=== PATIENT | female | born 1950 | race Caucasian/White ===

== ENCOUNTER 2022-02-17 10:12 | Emergency (ER) | payer MEDICARE ==
[2022-02-17] MEDS ORDERED: Epinephrine Preservative Free 1 MG/ML ONE (10:45)
[2022-02-17] MEDS ORDERED: solu-MEDROL 125 MG, Sterile H2O 10 ml 2 ML IV ONE ×4 (10:48→16:37)
[2022-02-17] MEDS ORDERED: Sterile H2O 10 ml IJ ONE ×2 (10:48→16:45)
[2022-02-17] MEDS ORDERED: solu-MEDROL ONE ×2 (10:48→16:45)
[2022-02-17] MEDS ORDERED: Epinephrine Preservative Free 1 MG/ML SQ ONE ×2 (10:49→10:57)
[2022-02-17] MEDS ORDERED: Pepcid 20 MG VIAL IV ONE ×3 (10:50→11:36)
[2022-02-17] MEDS ORDERED: ROCEPHIN 2 Gm-D5w 50ML BAG** 2 G/50 ML IVPB IV STA (11:05)
[2022-02-17] MEDS ORDERED: ROCEPHIN 2 Gm-D5w 50ML BAG** 2 G/50 ML IVPB IV ONE (11:05)
[2022-02-17] MEDS ORDERED: DECADRON 10MG INJ. IV ONE (11:06)
[2022-02-17] MEDS ORDERED: DECADRON 10MG INJ. ONE (11:08)
--- NOTE | 2022-02-17 11:19 | XRAY ---
Indication: Swelling. Contiguous axial images obtained through the neck without contrast. Comparison: None Parotid and submandibular glands are bilaterally symmetric. No pathologic cervical or supraclavicular lymphadenopathy. Mild scattered carotid calcifications, left greater than right. Thyroid gland appears homogeneous. Supra and infraglottic airway widely patent. Normal epiglottis. Osseous structures intact. No suspicious bony lesions. Patient is edentulous. TMJ bilaterally symmetric. Base of brain and lung apices are unremarkable. Impression: Mild arteriosclerotic disease. Remaining CT neck without contrast exam is negative.
[2022-02-17 11:34] LABS: Absolute Neutrophil Ct (ANC) 14.34 x10^3/uL (1.4-6.9); Basophil (Absolute #) 0.03 x10^3/uL (0-0.4); Eosinophil (Absolute #) 0 x10^3/uL (0-0.5); Hematocrit 36.7 % (35-47); Hemoglobin 12.3 g/dL (12.0-16.0); Lymphocyte (Absolute #) 0.69 x10^3/uL (1.0-4.6); Lymphocytes % 4.4 % (24.0-44.0); Mean Cell Volume 96.6 fL (78-100); Mean Corpuscular Hemoglobin 32.4 pg (26-32); Mean Corpuscular Hgb Concent. 33.5 g/dL (32-36); Mean Platelet Volume 10.7 fL (7.5-11.0); Monocyte (Absolute #) 0.42 x10^3/uL (0.0-1.3); Monocytes % 2.7 % (0.0-12.0); Neutrophil % 92.2 % (36.0-66.0); Platelet Count 140 x10^3/uL (150-450); Red Cell Distribution Width 12.2 % (11.5-14.0); White Blood Count 15.6 x10^3/uL (4.0-10.5)
[2022-02-17 11:46] LABS: ALBUMIN 3.4 g/dL (3.5-5.0); ANION GAP 10.7 MEQ/L (5-15); BILIRUBIN,TOTAL 1.1 mg/dL (0.2-1.3); Calcium 8.3 mg/dL (8.4-10.2); Creatinine 1 1.35 mg/dL (0.52-1.04); EST GLOMERULAR FILTRATION RATE 41.1 ML/MIN; Potassium 3.3 mmol/L (3.5-5.1); Total Protein 6.5 g/dL (6.3-8.2)
--- NOTE | 2022-02-17 12:19 | XRAY ---
Indication: Trouble swallowing. Targeted soft tissue ultrasound neck demonstrates 9 x 6 x 7 mm benign-appearing lymph node. No other solid/cystic mass or abnormal fluid collection.
--- NOTE | 2022-02-17 12:46 | XRAY ---
Indication: URI symptoms. Comparison: None Portable chest inflated and clear. Heart borderline enlarged. Bony thorax intact with mild osteopenia and degenerative changes.
--- NOTE | 2022-02-17 12:59 | ERPHSYRPT ---
- History of Present Illness Source: patient, other (Daughter) Patient Subjective Stated Complaint: pt with flu-like s/s for 2 weeks, saw her PCP 02/15/22, on that day she woke up with the worst sore throat ever, states at her appt the left side of her neck was swollen slightly and she was treated for a URI with IM steroids and abx. today she woke and her symptoms had worsened, pt was unable to swallow any secretions and had increased swelling to the neck as well as redness and pain, pt has also been vomiting. Triage Nursing Assessment: pt is aox3, pt appears in distress, gurgling sounds heard from upper airway, pt spitting out clear, copious secretions, pt pupils perrl, afebrile, radial pulses strong and equal, pt skin pale warm dry. swelling noted to the RLE with redness and warmth, skin is intact. pt with pressure dressing to the left forearm, pt with right mastectomy. Physician History: 72 yo wf w 2 day h/o anterior cervical edema. Pt has had URI symptoms x 2 wks and woke up 2 days ago w a severe ST. Pt was given IM antibiotics and IM Steroids per Hx. She has severe anterior cervical edema and trouble swallowing. Pt has to sit up to help w her secretions. Nursing called me into the room immediately to assess pt. IV access started immediately and 0.3 sq epi given x2, and pt was moved to room 2. Worried about airway due to severe edema so anesthes ia called due to possibility of airway compromise and difficult intubation. 125mg IV Solumedrol given/450mg IV Pepcid given. Pt sent to CT for soft tissue of neck which demonstrated a good airway and normal epiglottis. Oddly, edema not noted on CT. 10mg IV Decadron subsequently given. 2gm's IV Rocephin given. Edema mildly subsided w pt maintaining a good airway, so anesthesia went back to the OR. Timing/Duration: other (2 days) Severity: severe Modifying Factors: Improves With: nothing Associated Symptoms: shortness of breath, cough Allergies/Adverse Reactions: amlodipine Allergy (Verified 02/17/22 11:24) cisapride Allergy (Verified 02/17/22 11:24) doxycycline Allergy (Verified 02/17/22 11:24) enalapril Allergy (Verified 02/17/22 11:24) enalaprilat [From Vasotec] Allergy (Verified 02/17/22 11:24) fluoxetine Allergy (Verified 02/17/22 11:24) paroxetine Allergy (Verified 02/17/22 11:24) sertraline Allergy (Verified 02/17/22 11:24) sucralfate Allergy (Verified 02/17/22 11:24) Sulfa (Sulfonamide Antibiotics) Allergy (Verified 02/17/22 11:24) sulfadiazine Allergy (Verified 02/17/22 11:24) trazodone Allergy (Verified 02/17/22 11:24) Hx Tetanus, Diphtheria Vaccination/Date Given: Yes Hx Influenza Vaccination/Date Given: No Hx Pneumococcal Vaccination/Date Given: No Immunizations Up to Date: Yes Travel Risk - International Travel Have you traveled outside of the country in past 3 weeks: No - Coronavirus Screening Are you exhibiting any of the following symptoms?: No Close contact with a COVID-19 positive Pt in past 14-21 Days: No - Vaccine Status Have you recieved a Covid-19 vaccination: No - Review of Systems Constitutional: No Symptoms, Malaise Eyes: No Symptoms Ears, Nose, & Throat: No Symptoms, Throat Swelling Respiratory: No Symptoms, Cough Cardiac: No Symptoms Abdominal/Gastrointestinal: No Symptoms Genitourinary Symptoms: No Symptoms Musculoskeletal: No Symptoms Neurological: No Symptoms Psychological: No Symptoms Endocrine: No Symptoms Hematologic/Lymphatic: No Symptoms Immunological/Allergic: No Symptoms - Past Medical History Pertinent Past Medical History: Yes Cardiac History: Coronary Artery Disease, High Cholesterol, Hypertension History: Renal Disease - Past Surgical History Past Surgical History: Yes Cardiac: Cardiac Stent Female Surgical History: Mastectomy - Social History Smoking Status: Never smoker Drug Use: none Patient Lives Alone: No - Nursing Vital Signs Nursing Vital Signs: Initial Vital Signs Temperature 99.4 F 02/17/22 10:44 Pulse Rate 120 H 02/17/22 10:44 Respiratory Rate 12 02/17/22 10:44 Blood Pressure 128/74 02/17/22 10:44 O2 Sat by Pulse Oximetry 97 02/17/22 10:44 Pain Scale Pain Intensity 0 Tachy - Physical Exam General Appearance: moderate distress (Pt w possible early airway compromis) Eye Exam: PERRL/EOMI, eyes nml inspection Ears, Nose, Throat Exam: TMs normal, other (Tongue slightly enlarged but airway maintained), No pharyngeal erythema Neck Exam: other (Marked anterior cervical edema/erythema/TTP) Respiratory Exam: lungs clear, airway intact Cardiovascular Exam: tachycardia, No murmur Gastrointestinal/Abdomen Exam: soft, normal bowel sounds, No tenderness Back Exam: normal inspection, normal range of motion, No CVA tenderness, No vertebral tenderness Neurologic Exam: alert, oriented x 3, cooperative, extract puller II-XII nml as tested, normal mood/affect, nml station & gait, sensation nml SpO2 Interpretation: normal SpO2: 96 O2 Delivery: Nasal Cannula (2L) - Course Nursing assessment & vital signs reviewed: Yes EKG Interpreted by Me: RATE (NSR/Rate 89/Normal QT-QTc/Tall Rwave V2/No acute ST segment changes/Possible old inferior NV) - CT Exams Soft Tissue Neck CT Interpretation: Discussed w/radiologist (NAD) - Radiology Ultrasound Exam Other Ultrasound: discussed w/radiologist (9x6x7 lymph node) Ordered Tests: Active Orders 24 hr Category Date Time Status CHEST 1 VIEW (PORTABLE) Stat Exams 02/17/22 12:30 Completed NECK WO CONTRAST [CT] Routine Exams 02/17/22 11:00 Completed SOFT TISSUE HEAD/NECK [US] Stat Exams 02/17/22 11:39 Completed CBC W DIFF Stat Lab 02/17/22 11:27 Completed CMP Stat Lab 02/17/22 11:27 Completed Lactic Acid Stat Lab 02/17/22 11:26 Completed Medication Summary Discontinued Medications Generic Name Dose Route Start Last Admin Trade Name Damionq PRN Reason Stop Dose Admin Methylprednisolone Sodium 0 mg 02/17/22 10:48 02/17/22 10:50 Succinate 125 mg/ Sterile IV 02/17/22 10:49 125 mg Water 2 ml STAT ONE Administration Methylprednisolone Sodium 0 mg 02/17/22 16:37 02/17/22 16:45 Succinate 125 mg/ Sterile IV 02/17/22 16:38 125 mg Water 2 ml STAT ONE Administration Dexamethasone Sodium Phosphate 10 mg 02/17/22 11:06 02/17/22 11:09 Dexamethasone Sod Phosphate 10 Mg/Ml IV 02/17/22 11:07 10 mg STAT ONE Administration Dexamethasone Sodium Phosphate Confirm 02/17/22 11:08 Dexamethasone Sod Phosphate 10 Mg/Ml Administered 02/17/22 11:09 Dose 10 mg .ROUTE .STK-MED ONE Epinephrine HCl Confirm 02/17/22 10:45 Epinephrine 1 Mg/1 Ml Pf Amp 1 Mg/Ml Ml Administered 02/17/22 10:46 Dose 1 mg .ROUTE .STK-MED ONE Epinephrine HCl 0.3 mg 02/17/22 10:49 02/17/22 10:49 Epinephrine 1 Mg/1 Ml Pf Amp 1 Mg/Ml Ml SQ 02/17/22 10:50 0.3 mg ONCE ONE Administration Epinephrine HCl 0.3 mg 02/17/22 10:57 02/17/22 11:01 Epinephrine 1 Mg/1 Ml Pf Amp 1 Mg/Ml Ml SQ 02/17/22 10:58 0.3 mg STAT ONE Administration Famotidine 40 mg 02/17/22 10:50 02/17/22 10:56 Famotidine 20 Mg/1 Vial IV 02/17/22 10:51 40 mg STAT ONE Administration Famotidine Confirm 02/17/22 10:54 Famotidine 20 Mg/1 Vial Administered 02/17/22 10:55 Dose 20 mg IV .STK-MED ONE Famotidine Confirm 02/17/22 11:36 Famotidine 20 Mg/1 Vial Administered 02/17/22 11:37 Dose 20 mg IV .STK-MED ONE Fentanyl Citrate 25 mcg 02/17/22 15:35 02/17/22 16:03 Fentanyl Citrate 100 Mcg/2 Ml* Vial IV 02/17/22 15:36 25 mcg STAT ONE Administration Fentanyl Citrate Confirm 02/17/22 16:01 Fentanyl Citrate 100 Mcg/2 Ml* Vial Administered 02/17/22 16:02 Dose 100 mcg .ROUTE .STK-MED ONE Ceftriaxone Sodium/Dextrose 2 g in 50 mls @ 100 mls/hr 02/17/22 11:05 02/17/22 11:47 Rocephin 2 Gm-D5w 50ml Bag IV 02/17/22 11:34 Infused STAT STA Infusion Ceftriaxone Sodium/Dextrose Confirm 02/17/22 11:05 Rocephin 2 Gm-D5w 50ml Bag Administered 02/17/22 11:06 Dose 2 g in 50 mls @ ud IV .STK-MED ONE Methylprednisolone Sodium Succinate Confirm 02/17/22 10:48 Methylprednis Sod Succ 125 Mg/2 Ml Vial Administered 02/17/22 10:49 Dose 125 mg .ROUTE .STK-MED ONE Methylprednisolone Sodium Succinate Confirm 02/17/22 16:45 Methylprednis Sod Succ 125 Mg/2 Ml Vial Administered 02/17/22 16:46 Dose 125 mg .ROUTE .STK-MED ONE Ondansetron HCl 4 mg 02/17/22 14:48 02/17/22 14:57 Ondansetron Hcl 4 Mg/2 Ml Vial IV 02/17/22 14:49 4 mg STAT ONE Administration Ondansetron HCl Confirm 02/17/22 14:55 Ondansetron Hcl 4 Mg/2 Ml Vial Administered 02/17/22 14:56 Dose 4 mg .ROUTE .STK-MED ONE Sterile Water Confirm 02/17/22 10:48 Water For Injection,Sterile 10 Ml Vial Administered 02/17/22 10:49 Dose 10 ml IJ .STK-MED ONE Sterile Water Confirm 02/17/22 16:45 Water For Injection,Sterile 10 Ml Vial Administered 02/17/22 16:46 Dose 10 ml IJ .STK-MED ONE Lab/Rad Data: Laboratory Result Diagrams 02/17/22 11:27 02/17/22 11:27 Laboratory Results 02/17/22 02/17/22 02/17/22 Range/Units Unknown 12:45 11:27 WBC (4.0-10.5) x10^3/uL RBC (4.1-5.4) x10^6/uL Hgb (12.0-16.0) g/dL Hct (35-47) % MCV (78-100) fL MCH (26-32) pg MCHC (32-36) g/dL RDW (11.5-14.0) % Plt Count (150-450) x10^3/uL MPV (7.5-11.0) fL Gran % (36.0-66.0) % Immature Gran % (Auto) (0.00-0.4) % Nucleat RBC Rel Count (0.00-0.1) % Eos # (Auto) (0-0.5) x10^3/uL Immature Gran # (Auto) (0.00-0.03) x10^3u/L Absolute Lymphs (auto) (1.0-4.6) x10^3/uL Absolute Monos (auto) (0.0-1.3) x10^3/uL Absolute Nucleated RBC (0.00-0.01) x10^3u/L Lymphocytes % (24.0-44.0) % Monocytes % (0.0-12.0) % Eosinophils % (0.00-5.0) % Basophils % (0.0-0.4) % Absolute Granulocytes (1.4-6.9) x10^3/uL Basophils # (0-0.4) x10^3/uL Sodium 129 L (137-145) mmol/L Potassium 3.3 L (3.5-5.1) mmol/L Chloride 92 L (98-107) mmol/L Carbon Dioxide 29 (22-30) mmol/L Anion Gap 10.7 (5-15) MEQ/L BUN 28 H (7-17) mg/dL Creatinine 1.35 H (0.52-1.04) mg/dL Estimated GFR 41.1 ML/MIN Glucose 206 H (74-106) mg/dL Lactic Acid (0.4-2.0) Calcium 8.3 L (8.4-10.2) mg/dL Total Bilirubin 1.10 (0.2-1.3) mg/dL AST 21 (14-36) U/L ALT 19 (0-35) U/L Alkaline Phosphatase 96 (38-126) U/L Serum Total Protein 6.5 (6.3-8.2) g/dL Albumin 3.4 L (3.5-5.0) g/dL Influenza Type A Ag NEGATIVE (NEGATIVE) Influenza Type B Ag NEGATIVE (NEGATIVE) RSV (PCR) NEGATIVE (Negative) SARS-CoV-2 (PCR) NEGATIVE (NEGATIVE) Group A Strep Antibody NOT DETECTED (NEGATIVE) 02/17/22 02/17/22 Range/Units 11:27 11:26 WBC 15.6 H (4.0-10.5) x10^3/uL RBC 3.80 L (4.1-5.4) x10^6/uL Hgb 12.3 (12.0-16.0) g/dL Hct 36.7 (35-47) % MCV 96.6 (78-100) fL MCH 32.4 H (26-32) pg MCHC 33.5 (32-36) g/dL RDW 12.2 (11.5-14.0) % Plt Count 140 L (150-450) x10^3/uL MPV 10.7 (7.5-11.0) fL Gran % 92.2 H (36.0-66.0) % Immature Gran % (Auto) 0.5 H (0.00-0.4) % Nucleat RBC Rel Count 0.0 (0.00-0.1) % Eos # (Auto) 0 (0-0.5) x10^3/uL Immature Gran # (Auto) 0.08 H (0.00-0.03) x10^3u/L Absolute Lymphs (auto) 0.69 L (1.0-4.6) x10^3/uL Absolute Monos (auto) 0.42 (0.0-1.3) x10^3/uL Absolute Nucleated RBC 0.00 (0.00-0.01) x10^3u/L Lymphocytes % 4.4 L (24.0-44.0) % Monocytes % 2.7 (0.0-12.0) % Eosinophils % 0.0 (0.00-5.0) % Basophils % 0.2 (0.0-0.4) % Absolute Granulocytes 14.34 H (1.4-6.9) x10^3/uL Basophils # 0.03 (0-0.4) x10^3/uL Sodium (137-145) mmol/L Potassium (3.5-5.1) mmol/L Chloride (98-107) mmol/L Carbon Dioxide (22-30) mmol/L Anion Gap (5-15) MEQ/L BUN (7-17) mg/dL Creatinine (0.52-1.04) mg/dL Estimated GFR ML/MIN Glucose (74-106) mg/dL Lactic Acid 1.4 (0.4-2.0) Calcium (8.4-10.2) mg/dL Total Bilirubin (0.2-1.3) mg/dL AST (14-36) U/L ALT (0-35) U/L Alkaline Phosphatase (38-126) U/L Serum Total Protein (6.3-8.2) g/dL Albumin (3.5-5.0) g/dL Influenza Type A Ag (NEGATIVE) Influenza Type B Ag (NEGATIVE) RSV (PCR) (Negative) SARS-CoV-2 (PCR) (NEGATIVE) Group A Strep Antibody (NEGATIVE) - Progress Progress: improved Progress Note: 02/17/22 15:12 0.3 sq epi x2/125mg IV Solumedrol/40mg IV Pepcid/2gm IV Rocephin/10mg IV Decadron w mild improvement in edema Edema mildly improved w treatment/Area still erythematous and TTP 02/17/22 15:14 [facility] and unable to accept pt [facility] unable to accept pt due to lack of ENT [place] unable to accept pt [facility] unable to accept pt Spoke w ENT at [facility](Dr. Rajan) who stated that pt did not need surgeon. Transfer center later called and stated that Dr. Rajan called and stated that Hospitalist could not accept pt because he would be consulted and could not take care of the pt. 02/17/22 15:17 02/17/22 15:[address] Larson, [facility] but no bed for 1-2 days at best Spoke w Hospitalist at [facility], wanted pt transferred to ER. Pt accepted by [facility] ER 02/17/22 16:19 02/17/22 19:02 02/17/22 19:04 Pt still w anterior cervical edema/erythema but airway intact. Counseled pt/family regarding: lab results, diagnosis, need for follow-up, rad results - Departure Departure Disposition: Transfer Clinical Impression: Cellulitis Condition: Stable Critical Care Time: Yes Critical Care Time(excluding separately billable procedures): Critical 75-104 m ins Referrals: DOROTHY CABRERA [Primary Care Provider] - Follow up/PCP as directed
[2022-02-17 13:30] LABS: INFLUENZA A NEGATIVE (NEGATIVE); INFLUENZA B NEGATIVE (NEGATIVE); RESPIRATORY SYNCTIAL VIRUS NEGATIVE (Negative); SARS-CoV-2 Xpert Express NEGATIVE (NEGATIVE)
[2022-02-17] MEDS ORDERED: Zofran 4 MG/2 ML VIAL IV ONE (14:48)
[2022-02-17] MEDS ORDERED: Zofran 4 MG/2 ML VIAL ONE (14:55)
[2022-02-17] MEDS ORDERED: SUBLIMAZE 100 MCG/2 ML IV ONE (15:35)
[2022-02-17] MEDS ORDERED: SUBLIMAZE 100 MCG/2 ML ONE (16:01)
[2022-02-17 18:07] VITALS: BP 125/76; PULSE 93
[2022-02-17 19:05] VITALS: O2SAT 96
== END 2022-02-17 17:30 | disposition short-term general hospital (02) ==
LOC: ED 10:12
DX: L03.221 Cellulitis of neck (principal); J02.9 Acute pharyngitis, unspecified; Z28.310 Unvaccinated for COVID-19; E78.5 Hyperlipidemia, unspecified; I10 Essential (primary) hypertension; Z20.828 Contact with and (suspected) exposure to other viral communicable diseases
CPT/HCPCS: 0241U; 36415; 70490; 71045; 76536; 80053; 83605; 85025; 87651; 96372; 96374; 96375; 99285; 99291; 99292; 96365; 96376; J0171; J0696; J1100; J2405; J2930; J3010